=== PATIENT | male | born 1970 ===

== ENCOUNTER 2024-11-24 10:35 | Outpatient (CLI) | payer OTHER, SELFPAY ==
--- NOTE | ~2024-11-24 | US_ITS ---
TESTICULAR ULTRASOUND (Doppler ultrasound interrogation techniques used as needed for this exam.) Ordering provider: Jg Whittaker, History: . mass of LT testicle . Comparison: None. FINDINGS: TESTICLES: Normal in size. The right measures 4.1x 3.7x 2.1 cm and the left measures 6.1x 3.4x 2.2 cm . Normal echogenicity bilaterally without mass lesion. Normal Doppler flow bilaterally. EPIDIDYMIDES: Normal in size. The right measures 1 cm and the left 1.1 cm. Normal echogenicity bilate rally. Both demonstrate normal Doppler flow. Cyst is seen in the right epididymis measuring 0.6 x 0.8 x 0.8 cm. HYDROCELE: None. VARICOCELE: None. OTHER ABNORMALITY: None seen. Anechoic area is seen adjacent to the superior left testis measuring 0.4 x 0.4 x 0.2 cm. IMPRESSION: Right epididymal cyst. Small cystic area adjacent to the left testis superiorly. Otherwise, normal te sticular ultrasound. Reviewed, dictated and finalized at location A. IMPRESSION: Right epididymal cyst. Small cystic area adjacent to the left testis superiorly . Otherwise, normal testicular ultrasound.
== END 2024-11-24 10:36 | disposition home or self-care (01) ==
PROVIDERS: PCP Family Medicine; Visit Provider Family Medicine
DX: N50.89 Other specified disorders of the male genital organs (principal); L72.0 Epidermal cyst
CPT/HCPCS: 76870; 93976